=== PATIENT | female | born 1995 | race Caucasian/White ===

== ENCOUNTER 2019-03-06 13:59 | Inpatient (IN) | payer OTHER ==
[~2019-03-06] VITALS: Ht 152.4 cm; Wt 72.0 kg
[~2019-03-06 13:59] MED LIST: LEVO25TA4 PO; PREN1TAB10 PO
[2019-03-06 14:47] LABS: BASOPHILS # (AUTO) 0.03 x10^3/uL (0-0.1); BASOPHILS % (AUTO) 1 % (0-1); EOSINOPHILS # (AUTO) 0.06 x10^3/uL (0-0.4); EOSINOPHILS % (AUTO) 1 % (1-7); LYMPHOCYTES # (AUTO) 1.74 x10^3/uL (1-3.4); LYMPHOCYTES % (AUTO) 27 % (22-44); MD NO; MEAN CORPUSCULAR HEMOGLOBIN 31.6 pg (27.0-34.8); MEAN CORPUSCULAR HGB CONC 33.4 g/dL (32.4-35.8); MEAN CORPUSCULAR VOLUME 94.6 fL (80-100); MEAN PLATELET VOLUME 11.8 fL (7.4-10.4); MONOCYTES # (AUTO) 0.44 x10^3/uL (0.2-0.8); MONOCYTES % (AUTO) 7 % (2-9); NEUTROPHILS # (AUTO) 4.28 x10^3/uL (1.8-6.8); NEUTROPHILS % (AUTO) 65 % (42-75); PLATELET COUNT 120 x10^3/uL (130-400); RED BLOOD COUNT 3.63 x10^6/uL (3.82-5.3); RED CELL DISTRIBUTION WIDTH 13.6 % (9.6-15.2)
[2019-03-06 14:55] LABS: MICROSCOPIC AUTO
[2019-03-06 14:56] LABS: ALANINE AMINOTRANSFERASE 37 U/L (12-78); ALBUMIN 2.5 g/dL (3.4-5.0); ANION GAP 6 mmol/L (5-15); CALCIUM 9.6 mg/dL (8.5-10.1); CHLORIDE 113 mmol/L (98-107); CREATININE 0.79 mg/dL (0.55-1.02)
[2019-03-06 15:04] LABS: ALKALINE PHOSPHATASE 104 U/L (45-117); BILIRUBIN,TOTAL 0.3 mg/dL (0.2-1.0); TOTAL PROTEIN 6.2 g/dL (6.4-8.2)
[2019-03-06 15:06] LABS: CREATININE,URINE RANDOM 18.3 mg/dL
[2019-03-06] MEDS ORDERED: OXYTOCIN 30U/ 0.9% NaCL 500ML 500 ML IV PRN (15:38)
[2019-03-06] MEDS ORDERED: OXYTOCIN 30U/ 0.9% NaCL 500ML 500 ML IV ONE (15:38)
[2019-03-06] MEDS ORDERED: D5%-LACTATED RINGERS 1,000 ML IV SCH (15:38)
[2019-03-06] MEDS ORDERED: TERBUTALINE 1 MG/ML, 1ML SQ PRN (16:00)
[2019-03-06] MEDS ORDERED: FENTANYL PF 100 MCG/2ML IVPush PRN (16:00)
[2019-03-06] MEDS ORDERED: FENTANYL PF 100 MCG/2ML IV PRN (16:00)
[2019-03-06] MEDS ORDERED: CALCIUM CARBONATE 500 MG TAB.CHEW PO PRN (16:00)
[2019-03-06] MEDS ORDERED: ONDANSETRON 2MG/ML, 2ML IVPush PRN (16:00)
[2019-03-06] MEDS ORDERED: MISOPROSTOL 25 MCG TABLET VG PRN (16:00)
[2019-03-06] MEDS ORDERED: TERBUTALINE 1 MG/ML, 1ML IVPush PRN (16:00)
[2019-03-06] MEDS ORDERED: MISOPROSTOL 25 MCG TABLET ONE (16:01)
[2019-03-06] MEDS ORDERED: LIDOCAINE 1%, 20ML ONE (16:01)
[2019-03-06] MEDS ORDERED: NEWBORN KIT ONE (16:01)
[2019-03-06] MEDS ORDERED: MISOPROSTOL 200 MCG TABLET ONE (16:01)
[2019-03-06] MEDS ORDERED: OXYTOCIN 30U/ 0.9% NaCL 500ML 500 ML ONE (16:01)
[2019-03-06] MEDS: LACTATED RINGERS 1,000 ML IV SCH (16:47)
[2019-03-07] MEDS ORDERED: FENTANYL PF 500 MCG, BUPIVACAINE/PF 0.5%, 30ML 62.5 ML in SODIUM CHLORIDE 0.9% 177.5 ML EPIDCONT SCH (12:31)
[2019-03-07 14:46] LABS: BASOPHILS # (AUTO) 0.08 x10^3/uL (0-0.1); BASOPHILS % (AUTO) 1 % (0-1); EOSINOPHILS % (AUTO) 0 % (1-7); LYMPHOCYTES # (AUTO) 1.55 x10^3/uL (1-3.4); LYMPHOCYTES % (AUTO) 15 % (22-44); MD NO; MEAN CORPUSCULAR HEMOGLOBIN 30.9 pg (27.0-34.8); MEAN CORPUSCULAR HGB CONC 33.4 g/dL (32.4-35.8); MEAN CORPUSCULAR VOLUME 92.6 fL (80-100); MEAN PLATELET VOLUME 11.6 fL (7.4-10.4); MONOCYTES # (AUTO) 0.54 x10^3/uL (0.2-0.8); MONOCYTES % (AUTO) 5 % (2-9); NEUTROPHILS # (AUTO) 8.05 x10^3/uL (1.8-6.8); NEUTROPHILS % (AUTO) 79 % (42-75); PLATELET COUNT 112 x10^3/uL (130-400); RED BLOOD COUNT 3.81 x10^6/uL (3.82-5.3); RED CELL DISTRIBUTION WIDTH 13.8 % (9.6-15.2)
[2019-03-07] MEDS ORDERED: LACTATED RINGERS 1,000 ML IV SCH (15:03)
[2019-03-07] MEDS ORDERED: FENTANYL PF 500 MCG, BUPIVACAINE/PF 0.5%, 30ML 62.5 ML in SODIUM CHLORIDE 0.9% 177.5 ML IV SCH (15:30)
[2019-03-07] MEDS ORDERED: EPHEDRINE 50 MG/ML, 1ML IVPush PRN (15:30)
[2019-03-07] MEDS ORDERED: NALOXONE 0.4 MG/ML, 1ML IVPush PRN (15:30)
[2019-03-07] MEDS ORDERED: LACTATED RINGERS 1,000 ML IVBOLUS PRN (15:30)
[2019-03-07] MEDS ORDERED: BUPIVACAINE 0.25% ONE (15:39)
[2019-03-07] MEDS: LACTATED RINGERS 1,000 ML IV SCH (19:27)
[2019-03-07] MEDS ORDERED: OXYTOCIN 30U/ 0.9% NaCL 500ML 500 ML ONE (23:16)
[2019-03-07] MEDS: OXYTOCIN 30U/ 0.9% NaCL 500ML 500 ML IV SCH (23:25)
[2019-03-07] MEDS ORDERED: OXYcodone/APAP 5/325MG TABLET PO PRN (23:30)
[2019-03-07] MEDS ORDERED: SIMETHICONE 80 MG CHEW TAB PO PRN (23:30)
[2019-03-07] MEDS ORDERED: MISOPROSTOL 200 MCG TABLET PR PRN ×2 (23:30)
[2019-03-07] MEDS ORDERED: IBUPROFEN 600 MG TABLET ONE (23:40)
[2019-03-07] MEDS: IBUPROFEN 600 MG TABLET PO PRN (23:41)
[2019-03-08 01:10] VITALS: BP 134/91
[2019-03-08 03:23] VITALS: BP 138/89
[2019-03-08] MEDS: IBUPROFEN 600 MG TABLET PO PRN ×3 (05:29→18:24)
[2019-03-08] MEDS: LEVOTHYROXINE 25 MCG TABLET HOMEMEDPO SCH (05:47)
[2019-03-08] MEDS ORDERED: LEVOTHYROXINE 25 MCG TABLET PO SCH (06:00)
[2019-03-08 07:00] LABS: BASOPHILS # (AUTO) 0.05 x10^3/uL (0-0.1); BASOPHILS % (AUTO) 0 % (0-1); EOSINOPHILS % (AUTO) 0 % (1-7); LYMPHOCYTES # (AUTO) 1.65 x10^3/uL (1-3.4); LYMPHOCYTES % (AUTO) 13 % (22-44); MD SCAN; MEAN CORPUSCULAR HEMOGLOBIN 30.9 pg (27.0-34.8); MEAN CORPUSCULAR HGB CONC 33.1 g/dL (32.4-35.8); MEAN CORPUSCULAR VOLUME 93.4 fL (80-100); MEAN PLATELET VOLUME 9.5 fL (7.4-10.4); MONOCYTES # (AUTO) 0.69 x10^3/uL (0.2-0.8); MONOCYTES % (AUTO) 5 % (2-9); NEUTROPHILS # (AUTO) 10.81 x10^3/uL (1.8-6.8); NEUTROPHILS % (AUTO) 82 % (42-75); PLATELET COUNT 108 x10^3/uL (130-400); RED BLOOD COUNT 3.35 x10^6/uL (3.82-5.3); RED CELL DISTRIBUTION WIDTH 13.9 % (9.6-15.2)
[2019-03-08 08:12] VITALS: BP 124/87
[2019-03-08] MEDS: PRENATAL VIT/IRON/FA 1 EACH TABLET PO SCH (08:12)
[2019-03-08] MEDS: OXYTOCIN 30U/ 0.9% NaCL 500ML 500 ML IV SCH ×2 (09:25→18:27)
[2019-03-08 11:46] VITALS: BP 127/90
[2019-03-08 16:13] VITALS: BP 121/81
[2019-03-08] MEDS ORDERED: DIPH,PERTUSS(ACELL),TET VAC/PF NC IM-VACC ONE ×2 (16:21→16:30)
[2019-03-08] MEDS: DOCUSATE 100 MG CAPSULE PO PRN (19:24)
[2019-03-08 19:37] VITALS: BP 139/94
[2019-03-09 00:01] VITALS: BP 125/79
[2019-03-09] MEDS: IBUPROFEN 600 MG TABLET PO PRN ×2 (00:07→07:40)
[2019-03-09] MEDS: OXYTOCIN 30U/ 0.9% NaCL 500ML 500 ML IV SCH ×2 (05:25→06:17)
[2019-03-09] MEDS: LEVOTHYROXINE 25 MCG TABLET HOMEMEDPO SCH (06:00)
[2019-03-09 07:35] VITALS: BP 125/83
[2019-03-09] MEDS: DOCUSATE 100 MG CAPSULE PO PRN (07:40)
[2019-03-09] MEDS: PRENATAL VIT/IRON/FA 1 EACH TABLET PO SCH (07:40)
== END 2019-03-09 14:15 | disposition expired | DRG 807 ==
LOC: LDOP 13:59 → LDIP 15:42 → 2NW 03-08 00:50
PROVIDERS: ADMIT Obstetrics & Gynecology; ATTEND Obstetrics & Gynecology
PROC: 10E0XZZ Delivery of Products of Conception, External Approach (ICD-10-PCS; principal; 2019-03-07)
PROC: 10907ZC Drainage of Amniotic Fluid, Therapeutic from Products of Conception, Via Natural or Artificial Opening (ICD-10-PCS; 2019-03-07)
PROC: 0U7C7ZZ Dilation of Cervix, Via Natural or Artificial Opening (ICD-10-PCS; 2019-03-07)
PROC: 0HQ9XZZ Repair Perineum Skin, External Approach (ICD-10-PCS; 2019-03-07)
PROC: 3E0234Z Introduction of Serum, Toxoid and Vaccine into Muscle, Percutaneous Approach (ICD-10-PCS; 2019-03-08)
DX: O14.04 Mild to moderate pre-eclampsia, complicating childbirth (principal); Z37.0 Single live birth; E03.9 Hypothyroidism, unspecified; O99.284 Endocrine, nutritional and metabolic diseases complicating childbirth; Z3A.37 37 weeks gestation of pregnancy; Z83.3 Family history of diabetes mellitus; Z23 Encounter for immunization; O69.81X0 Labor and delivery complicated by cord around neck, without compression, not applicable or unspecified; O70.0 First degree perineal laceration during delivery
CPT/HCPCS: 36415; S0020; 80053; 81001; 82570; 84156; 84550; 85025; 86850; 86900; 90715; G0378; J3010; J2590; J7050; J7120